=== PATIENT | male | born 1940 | race Caucasian/White ===

== ENCOUNTER → 2019-01-23 | Outpatient (CLI) | payer MEDICARE, BC ==
[~2019-01-23] MED LIST: VISIPAQUE 320 MG/ML, 150ML BOTTLE ONE
[2019-01-23 12:33] LABS: CREATININE 1.02 mg/dL (0.7-1.3)
== END | disposition home or self-care (01) ==
LOC: RAD 11:36
PROVIDERS: ATTEND Internal Medicine Cardiovascular Disease
DX: I70.0 Atherosclerosis of aorta (principal); I48.20 Chronic atrial fibrillation, unspecified
CPT/HCPCS: 36415; 71275; 74174; 82565; Q9967

== ENCOUNTER 2019-02-27 04:22 | Inpatient (IN) | payer MEDICARE, BC ==
[2019-02-26 13:29] LABS: BASOPHILS # (AUTO) 0.02 x10^3/uL (0-0.1); BASOPHILS % (AUTO) 0 % (0-1); EOSINOPHILS # (AUTO) 0.05 x10^3/uL (0-0.4); EOSINOPHILS % (AUTO) 1 % (1-7); LYMPHOCYTES # (AUTO) 1.32 x10^3/uL (1-3.4); LYMPHOCYTES % (AUTO) 22 % (22-44); MD NO; MEAN CORPUSCULAR HEMOGLOBIN 33.6 pg (27.5-34.5); MEAN CORPUSCULAR HGB CONC 33.2 g/dL (33.2-36.2); MEAN PLATELET VOLUME 7.1 fL (7.4-10.4); MONOCYTES # (AUTO) 0.45 x10^3/uL (0.2-0.8); MONOCYTES % (AUTO) 8 % (2-9); NEUTROPHILS # (AUTO) 4.22 x10^3/uL (1.8-6.8); NEUTROPHILS % (AUTO) 70 % (42-75); PLATELET COUNT 179 x10^3/uL (130-400); RED BLOOD COUNT 4.53 x10^6/uL (4.38-5.82); RED CELL DISTRIBUTION WIDTH 14.4 % (9.4-14.8)
[2019-02-26 13:39] LABS: INTERNATIONAL NORMALIZED RATIO 1.17 (0.93-1.1); PROTHROMBIN TIME 12.2 Seconds (9.6-11.5)
[2019-02-26 13:40] LABS: ALBUMIN 3.5 g/dL (3.4-5.0); ANION GAP 6 mmol/L (5-15); CALCIUM 8.8 mg/dL (8.5-10.1); CHLORIDE 108 mmol/L (98-107)
[2019-02-26 13:44] LABS: ALANINE AMINOTRANSFERASE 38 U/L (12-78); ALKALINE PHOSPHATASE 96 U/L (45-117); CREATININE 1.08 mg/dL (0.7-1.3); TOTAL PROTEIN 7.2 g/dL (6.4-8.2)
[2019-02-26 14:31] LABS: MICROSCOPIC AUTO
[~2019-02-27] VITALS: Ht 193 cm; Wt 104.9 kg
[~2019-02-27 04:22] MED LIST changes: +ASCO100T5 PO; +LISI-170 PO; +MULT1TAB60 PO; +SIMV20TA19 PO; +TAMS-11 PO; +UBID100C24 PO; -VISIPAQUE 320 MG/ML, 150ML BOTTLE ONE; +WARF2.5T32 PO
[2019-02-27] MEDS ORDERED: INSULIN LISPRO 100 UNITS/ML, PEN SQ-INSULIN SCH (05:00)
[2019-02-27] MEDS ORDERED: DO NOT GIVE MC SCH (05:00)
[2019-02-27] MEDS ORDERED: CHLORHEXIDINE 15 ML UDC MM SCH (05:00)
[2019-02-27 05:06] VITALS: BP_SYST 158; BP_SYST 161; BP_DIAS 81; BP_DIAS 90
[2019-02-27] MEDS ORDERED: FENTANYL PF 250 MCG/5ML ONE ×4 (07:10)
[2019-02-27] MEDS ORDERED: MIDAZOLAM 10MG/2 ML ONE (07:14)
[2019-02-27] MEDS ORDERED: POTASSIUM CHLORIDE 80 MEQ, SODIUM BICARBONATE 8.4% 10 MEQ, MAGNESIUM SULFATE 0.5 GM, LI... IV PRN (07:30)
[2019-02-27] MEDS ORDERED: VANCOMYCIN IV PRN (07:30)
[2019-02-27] MEDS ORDERED: REGULAR INSULIN 62.5 UNITS in SODIUM CHLORIDE 0.9% 249.375 ML IV PRN ×2 (07:30→08:20)
[2019-02-27] MEDS ORDERED: ALBUMIN HUMAN 5% 500 ML IV PRN (07:30)
[2019-02-27] MEDS ORDERED: PHENYLEPHRINE 10 MG in SODIUM CHLORIDE 0.9% 249 ML IV PRN ×2 (07:30→08:20)
[2019-02-27] MEDS ORDERED: EPINEPHRINE 2 MG in SODIUM CHLORIDE 0.9% 248 ML IV SCH (07:30)
[2019-02-27] MEDS ORDERED: SODIUM CHLORIDE 0.9% IV PRN (07:30)
[2019-02-27] MEDS ORDERED: MANNITOL PMX 20% 500 ML IVPB PRN (07:30)
[2019-02-27] MEDS ORDERED: CEFUROXIME 1.5 GM in SODIUM CHLORIDE 0.9% 50 ML IVPB PRN (07:30)
[2019-02-27] MEDS ORDERED: DEXMEDETOMIDINE 200 MCG in SODIUM CHLORIDE 0.9% 48 ML IV SCH (07:30)
[2019-02-27] MEDS ORDERED: PROPOFOL 10 MG/ML, 20ML ONE (08:18)
[2019-02-27] MEDS ORDERED: VASOPRESSIN 20 UNIT/ML, 1ML ONE (08:18)
[2019-02-27] MEDS ORDERED: ROCURONIUM 10MG/ML,5ML ONE ×2 (08:19)
[2019-02-27] MEDS ORDERED: AMINOCAPROIC ACID 250 MG/ML, 20ML ONE ×2 (08:19)
[2019-02-27] MEDS ORDERED: SODIUM CHLORIDE 0.9% 1,000 ML IV PRN (08:20)
[2019-02-27] MEDS ORDERED: DEXMEDETOMIDINE 200 MCG in SODIUM CHLORIDE 0.9% 48 ML IV PRN (08:20)
[2019-02-27] MEDS ORDERED: VASOPRESSIN 50 UNIT in SODIUM CHLORIDE 0.9% 247.5 ML IV PRN (08:20)
[2019-02-27] MEDS ORDERED: VANCOMYCIN 1,600 MG in SODIUM CHLORIDE 0.9% 250 ML IVPB SCH (08:20)
[2019-02-27] MEDS ORDERED: NITROGLYCERIN/D5W PMX 250 ML IV PRN (08:20)
[2019-02-27] MEDS ORDERED: DOBUTAMINE 250 MG in SODIUM CHLORIDE 0.9% 230 ML IV PRN (08:20)
[2019-02-27] MEDS ORDERED: SODIUM BICARB 8.4%, 50ML SYRINGE IV PRN (08:30)
[2019-02-27] MEDS ORDERED: MIDAZOLAM 1 MG/ML, 5ML IVPush PRN (08:30)
[2019-02-27] MEDS ORDERED: EPINEPHRINE 2 MG in SODIUM CHLORIDE 0.9% 248 ML IV PRN (08:30)
[2019-02-27] MEDS ORDERED: BISACODYL 5 MG EC TABLET PO PRN (08:30)
[2019-02-27] MEDS ORDERED: BISACODYL 10 MG SUPP PR PRN (08:30)
[2019-02-27] MEDS ORDERED: DEXTROSE 50%, 50ML SYRINGE IVPush PRN (08:30)
[2019-02-27] MEDS ORDERED: ACETAMINOPHEN 650 MG SUPP PR PRN (08:30)
[2019-02-27] MEDS ORDERED: ACETAMINOPHEN 325 MG TABLET PO PRN (08:30)
[2019-02-27] MEDS ORDERED: FENTANYL PF 100 MCG/2ML IVPush PRN (08:30)
[2019-02-27] MEDS ORDERED: INSULIN REGULAR 100 UNITS/ML, 3ML VIAL IVPush PRN (08:30)
[2019-02-27] MEDS ORDERED: HYDROcodone/APAP 10/325 MG TABLET PO PRN (08:30)
[2019-02-27] MEDS ORDERED: DEXTROSE 4 GM TAB.CHEW PO PRN (08:30)
[2019-02-27] MEDS ORDERED: morphine SULFATE 10 MG/ML, 1ML IVPush PRN (08:30)
[2019-02-27] MEDS ORDERED: GLUCAGON 1 MG IM PRN (08:30)
[2019-02-27] MEDS ORDERED: PROCHLORPERAZINE 5 MG/ML, 2ML IVPush PRN (08:30)
[2019-02-27] MEDS ORDERED: LACTATED RINGERS 1,000 ML IV PRN (08:30)
[2019-02-27] MEDS ORDERED: MUPIROCIN OINT 2%, 22GM TP SCH (09:00)
[2019-02-27] MEDS: SODIUM CHLORIDE FLUSH 10ML SYR IVF SCH ×2 (09:00→20:20)
[2019-02-27] MEDS ORDERED: SODIUM CHLORIDE FLUSH 10ML SYR IVF SCH (09:00)
[2019-02-27] MEDS: DOCUSATE 100 MG CAPSULE PO SCH ×2 (10:25→20:20)
[2019-02-27] MEDS: MUPIROCIN OINT 2%, 22GM NAS SCH ×2 (10:25→20:20)
[2019-02-27] MEDS ORDERED: PROTAMINE SULFATE 10 MG/ML, 25ML ONE ×2 (10:42)
[2019-02-27] MEDS: INSULIN LISPRO 100 UNITS/ML, PEN SQ-INSULIN SCH ×3 (11:07→20:21)
[2019-02-27] MEDS ORDERED: SODIUM BICARBONATE 1 MEQ/ML, 50ML VIAL ONE (12:29)
[2019-02-27] MEDS ORDERED: methylPREDNISolone SOD SUCC 125 MG/2 ML ONE (12:29)
[2019-02-27] MEDS ORDERED: ALBUMIN HUMAN 25% 50 ML ONE (12:29)
[2019-02-27] MEDS ORDERED: HEPARIN 1,000 UNITS/ML, 30ML ONE (12:29)
[2019-02-27] MEDS ORDERED: LIDOCAINE 2%, 20ML ONE (12:29)
[2019-02-27 12:45] LABS: GLUCOSE BY BLOOD GAS ANALYZER 168 mg/dL (70-110); POTASSIUM BY BLOOD GAS ANALYZR 3.8 mmol/L (3.6-5.5)
[2019-02-27 12:57] LABS: INTERNATIONAL NORMALIZED RATIO 1.47 (0.93-1.1); PROTHROMBIN TIME 15.2 Seconds (9.6-11.5)
[2019-02-27] MEDS: KSCALE TO 4.5 IV SCH ×2 (13:00→18:34)
[2019-02-27] MEDS: MAGNESIUM SULFATE 1 GM in SODIUM CHLORIDE 0.9% 50 ML IVPB SCH (13:48)
[2019-02-27] MEDS ORDERED: POTASSIUM CHLORIDE PMX 100 ML IV ONE (14:00)
[2019-02-27] MEDS: CEFUROXIME 1.5 GM in SODIUM CHLORIDE 0.9% 50 ML IVPB SCH (18:32)
[2019-02-27] MEDS: VANCOMYCIN 1,600 MG in SODIUM CHLORIDE 0.9% 250 ML IVPB SCH (19:02)
[2019-02-27] MEDS: ONDANSETRON 2MG/ML, 2ML IVPush PRN (20:20)
[2019-02-27] MEDS: HYDROcodone/APAP 5/325 TABLET PO PRN (20:21)
[2019-02-27] MEDS: OXYcodone IR 5MG TABLET PO PRN (22:45)
[2019-02-28] MEDS ORDERED: FUROSEMIDE 20 MG/2 ML IV ONE (01:00)
[2019-02-28] MEDS: OXYcodone IR 5MG TABLET PO PRN ×6 (03:35→23:59)
[2019-02-28] MEDS: KSCALE TO 4.5 IV SCH ×2 (06:00)
[2019-02-28 06:07] LABS: ALBUMIN 2.9 g/dL (3.4-5.0); ANION GAP 7 mmol/L (5-15); CALCIUM 8.3 mg/dL (8.5-10.1); CHLORIDE 112 mmol/L (98-107); INTERNATIONAL NORMALIZED RATIO 1.12 (0.93-1.1); PROTHROMBIN TIME 11.7 Seconds (9.6-11.5)
[2019-02-28 06:13] LABS: CREATININE 1.11 mg/dL (0.7-1.3)
[2019-02-28] MEDS: CEFUROXIME 1.5 GM in SODIUM CHLORIDE 0.9% 50 ML IVPB SCH (06:15)
[2019-02-28] MEDS: INSULIN LISPRO 100 UNITS/ML, PEN SQ-INSULIN SCH ×4 (06:20→20:22)
[2019-02-28] MEDS: ONDANSETRON 2MG/ML, 2ML IVPush PRN (07:36)
[2019-02-28] MEDS: VANCOMYCIN 1,600 MG in SODIUM CHLORIDE 0.9% 250 ML IVPB SCH (07:36)
[2019-02-28] MEDS ORDERED: SODIUM CHLORIDE 0.9%, 500ML IVBOLUS ONE (08:00)
[2019-02-28 08:16] LABS: MEAN CORPUSCULAR HGB CONC 32.6 g/dL (33.2-36.2); MEAN CORPUSCULAR VOLUME 104.3 fL (81-97); MEAN PLATELET VOLUME 8.1 fL (7.4-10.4); PLATELET COUNT 116 x10^3/uL (130-400); RED BLOOD COUNT 3.95 x10^6/uL (4.38-5.82); RED CELL DISTRIBUTION WIDTH 14.4 % (9.4-14.8)
[2019-02-28 08:33] LABS: BASOPHILS % (AUTO) 0 % (0-1); EOSINOPHILS # (AUTO) 0.13 x10^3/uL (0-0.4); EOSINOPHILS % (AUTO) 1 % (1-7); LYMPHOCYTES # (AUTO) 0.62 x10^3/uL (1-3.4); LYMPHOCYTES % (AUTO) 4 % (22-44); MD SCAN; MONOCYTES # (AUTO) 0.71 x10^3/uL (0.2-0.8); MONOCYTES % (AUTO) 5 % (2-9); NEUTROPHILS # (AUTO) 13.16 x10^3/uL (1.8-6.8); NEUTROPHILS % (AUTO) 90 % (42-75)
[2019-02-28] MEDS ORDERED: MAGNESIUM HYDROXIDE 8%, 30ML UDC PO PRN (09:00)
[2019-02-28] MEDS: ASPIRIN 81 MG TABLET EC PO SCH (09:16)
[2019-02-28] MEDS: TAMSULOSIN 0.4 MG CAP.ER.24H PO SCH (09:16)
[2019-02-28] MEDS: DOCUSATE 100 MG CAPSULE PO SCH ×2 (09:16→20:17)
[2019-02-28] MEDS: SODIUM CHLORIDE FLUSH 10ML SYR IVF SCH ×3 (09:17→20:23)
[2019-02-28] MEDS: CHLORHEXIDINE 15 ML UDC MM SCH ×2 (09:17→20:17)
[2019-02-28] MEDS: MUPIROCIN OINT 2%, 22GM NAS SCH ×2 (09:17→20:41)
[2019-02-28] MEDS: HYDROcodone/APAP 5/325 TABLET PO PRN (11:06)
[2019-02-28] MEDS: MAGNESIUM SULFATE 1 GM in SODIUM CHLORIDE 0.9% 50 ML IVPB SCH (12:02)
[2019-02-28] MEDS ORDERED: ALBUMIN HUMAN 5% 500 ML IV ONE (14:00)
[2019-02-28] MEDS ORDERED: WARFARIN 7.5 MG TABLET PO-COUM ONE (18:00)
[2019-02-28 20:00] VITALS: BP 115/62
[2019-02-28] MEDS: SIMVASTATIN 20 MG TABLET PO SCH (20:17)
[2019-03-01] VITALS: BP 126/61
[2019-03-01 04:00] VITALS: BP 117/62
[2019-03-01] MEDS: OXYcodone IR 5MG TABLET PO PRN ×5 (06:55→22:50)
[2019-03-01 08:00] VITALS: BP 136/86
[2019-03-01 08:00] LABS: BASOPHILS % (AUTO) 0 % (0-1); EOSINOPHILS # (AUTO) 0.01 x10^3/uL (0-0.4); EOSINOPHILS % (AUTO) 0 % (1-7); LYMPHOCYTES # (AUTO) 0.78 x10^3/uL (1-3.4); LYMPHOCYTES % (AUTO) 6 % (22-44); MD NO; MEAN CORPUSCULAR HEMOGLOBIN 33.6 pg (27.5-34.5); MEAN PLATELET VOLUME 7.7 fL (7.4-10.4); MONOCYTES % (AUTO) 6 % (2-9); NEUTROPHILS # (AUTO) 11.17 x10^3/uL (1.8-6.8); NEUTROPHILS % (AUTO) 88 % (42-75); PLATELET COUNT 108 x10^3/uL (130-400); RED BLOOD COUNT 3.56 x10^6/uL (4.38-5.82); RED CELL DISTRIBUTION WIDTH 14.8 % (9.4-14.8)
[2019-03-01 08:07] LABS: CALCIUM 8.7 mg/dL (8.5-10.1); CREATININE 1.07 mg/dL (0.7-1.3)
[2019-03-01 08:08] LABS: INTERNATIONAL NORMALIZED RATIO 1.24 (0.93-1.1); PROTHROMBIN TIME 12.9 Seconds (9.6-11.5)
[2019-03-01 08:22] LABS: ANION GAP 5 mmol/L (5-15); CHLORIDE 107 mmol/L (98-107)
[2019-03-01] MEDS: INSULIN LISPRO 100 UNITS/ML, PEN SQ-INSULIN SCH ×4 (08:52→20:25)
[2019-03-01] MEDS: TAMSULOSIN 0.4 MG CAP.ER.24H PO SCH (08:52)
[2019-03-01] MEDS: CHLORHEXIDINE 15 ML UDC MM SCH ×2 (08:52→20:25)
[2019-03-01] MEDS: DOCUSATE 100 MG CAPSULE PO SCH ×2 (08:52→20:24)
[2019-03-01] MEDS: MUPIROCIN OINT 2%, 22GM NAS SCH ×2 (08:53→21:00)
[2019-03-01] MEDS: ASPIRIN 81 MG TABLET EC PO SCH (08:54)
[2019-03-01] MEDS: SODIUM CHLORIDE FLUSH 10ML SYR IVF SCH ×4 (08:55→20:25)
[2019-03-01] MEDS: MAGNESIUM SULFATE 1 GM in SODIUM CHLORIDE 0.9% 50 ML IVPB SCH (12:06)
[2019-03-01 14:20] VITALS: BP 136/86
[2019-03-01] MEDS ORDERED: WARFARIN 7.5 MG TABLET PO-COUM ONE (18:00)
[2019-03-01] MEDS: SIMVASTATIN 20 MG TABLET PO SCH (20:24)
[2019-03-01 22:04] VITALS: BP 126/63
[2019-03-02 00:39] VITALS: BP 144/79
[2019-03-02] MEDS: OXYcodone IR 5MG TABLET PO PRN ×3 (02:09→22:11)
[2019-03-02 05:23] VITALS: BP 148/81
[2019-03-02 05:58] LABS: ANION GAP 6 mmol/L (5-15); BASOPHILS # (AUTO) 0.07 x10^3/uL (0-0.1); BASOPHILS % (AUTO) 1 % (0-1); CALCIUM 8.6 mg/dL (8.5-10.1); CHLORIDE 105 mmol/L (98-107); CREATININE 0.87 mg/dL (0.7-1.3); EOSINOPHILS # (AUTO) 0.17 x10^3/uL (0-0.4); EOSINOPHILS % (AUTO) 2 % (1-7); LYMPHOCYTES # (AUTO) 1.16 x10^3/uL (1-3.4); LYMPHOCYTES % (AUTO) 11 % (22-44); MD NO; MEAN CORPUSCULAR HEMOGLOBIN 34.1 pg (27.5-34.5); MEAN CORPUSCULAR HGB CONC 32.9 g/dL (33.2-36.2); MEAN CORPUSCULAR VOLUME 103.7 fL (81-97); MONOCYTES # (AUTO) 0.79 x10^3/uL (0.2-0.8); MONOCYTES % (AUTO) 8 % (2-9); NEUTROPHILS # (AUTO) 8.16 x10^3/uL (1.8-6.8); NEUTROPHILS % (AUTO) 79 % (42-75); PLATELET COUNT 109 x10^3/uL (130-400); RED BLOOD COUNT 3.48 x10^6/uL (4.38-5.82); RED CELL DISTRIBUTION WIDTH 14.6 % (9.4-14.8)
[2019-03-02 06:35] LABS: INTERNATIONAL NORMALIZED RATIO 1.66 (0.93-1.1); PROTHROMBIN TIME 17.1 Seconds (9.6-11.5)
[2019-03-02] MEDS: INSULIN LISPRO 100 UNITS/ML, PEN SQ-INSULIN SCH (07:00)
[2019-03-02] MEDS: SODIUM CHLORIDE FLUSH 10ML SYR IVF SCH ×4 (09:00→21:33)
[2019-03-02] MEDS: TAMSULOSIN 0.4 MG CAP.ER.24H PO SCH (09:22)
[2019-03-02] MEDS: ASPIRIN 81 MG TABLET EC PO SCH (09:22)
[2019-03-02] MEDS: DOCUSATE 100 MG CAPSULE PO SCH ×2 (09:22→21:33)
[2019-03-02] MEDS: MUPIROCIN OINT 2%, 22GM NAS SCH ×2 (12:19→21:33)
[2019-03-02 14:00] VITALS: BP 156/75
[2019-03-02] MEDS ORDERED: WARFARIN 3 MG TABLET PO-COUM ONE (18:00)
[2019-03-02 20:14] VITALS: BP 134/75
[2019-03-02] MEDS: SIMVASTATIN 20 MG TABLET PO SCH (21:33)
[2019-03-03 00:21] VITALS: BP 145/72
[2019-03-03 04:39] LABS: BASOPHILS # (AUTO) 0.04 x10^3/uL (0-0.1); BASOPHILS % (AUTO) 1 % (0-1); EOSINOPHILS # (AUTO) 0.09 x10^3/uL (0-0.4); EOSINOPHILS % (AUTO) 1 % (1-7); LYMPHOCYTES # (AUTO) 1.05 x10^3/uL (1-3.4); LYMPHOCYTES % (AUTO) 14 % (22-44); MD NO; MEAN CORPUSCULAR HEMOGLOBIN 34.5 pg (27.5-34.5); MEAN CORPUSCULAR VOLUME 104.6 fL (81-97); MONOCYTES # (AUTO) 0.67 x10^3/uL (0.2-0.8); MONOCYTES % (AUTO) 9 % (2-9); NEUTROPHILS # (AUTO) 5.51 x10^3/uL (1.8-6.8); NEUTROPHILS % (AUTO) 75 % (42-75); PLATELET COUNT 113 x10^3/uL (130-400); RED CELL DISTRIBUTION WIDTH 14.1 % (9.4-14.8)
[2019-03-03 04:45] LABS: INTERNATIONAL NORMALIZED RATIO 3.01 (0.93-1.1); PROTHROMBIN TIME 30.3 Seconds (9.6-11.5)
[2019-03-03 04:49] LABS: ANION GAP 5 mmol/L (5-15); CALCIUM 8.2 mg/dL (8.5-10.1); CHLORIDE 105 mmol/L (98-107)
[2019-03-03 06:41] VITALS: BP 151/76
[2019-03-03] MEDS ORDERED: POTASSIUM CHLORIDE 20 MEQ TAB.ER.PRT PO ONE (08:30)
[2019-03-03] MEDS: SODIUM CHLORIDE FLUSH 10ML SYR IVF SCH ×4 (09:00→20:33)
[2019-03-03] MEDS: FUROSEMIDE 40 MG TABLET PO SCH (09:26)
[2019-03-03] MEDS: ASPIRIN 81 MG TABLET EC PO SCH (09:26)
[2019-03-03] MEDS: DOCUSATE 100 MG CAPSULE PO SCH ×2 (09:26→20:32)
[2019-03-03] MEDS: TAMSULOSIN 0.4 MG CAP.ER.24H PO SCH (09:26)
[2019-03-03] MEDS: MUPIROCIN OINT 2%, 22GM NAS SCH ×2 (09:27→20:32)
[2019-03-03] MEDS: HYDROcodone/APAP 5/325 TABLET PO PRN (09:59)
[2019-03-03 12:08] VITALS: BP 117/69
[2019-03-03] MEDS ORDERED: [UNRECOGNIZED DRUG - REMARK] MC PRN (14:30)
[2019-03-03] MEDS: OXYcodone IR 5MG TABLET PO PRN (17:29)
[2019-03-03 19:50] VITALS: BP 144/72
[2019-03-03] MEDS: SIMVASTATIN 20 MG TABLET PO SCH (20:32)
[2019-03-03 23:44] VITALS: BP 145/76
[2019-03-04] MEDS: OXYcodone IR 5MG TABLET PO PRN ×3 (04:41→16:06)
[2019-03-04 06:50] VITALS: BP 155/74
[2019-03-04 07:01] LABS: INTERNATIONAL NORMALIZED RATIO 4.43 (0.93-1.1); PROTHROMBIN TIME 43.9 Seconds (9.6-11.5)
[2019-03-04 07:03] LABS: ANION GAP 6 mmol/L (5-15); CALCIUM 8.6 mg/dL (8.5-10.1); CHLORIDE 104 mmol/L (98-107); CREATININE 0.79 mg/dL (0.7-1.3)
[2019-03-04 07:12] LABS: BASOPHILS # (AUTO) 0.04 x10^3/uL (0-0.1); BASOPHILS % (AUTO) 1 % (0-1); EOSINOPHILS # (AUTO) 0.14 x10^3/uL (0-0.4); EOSINOPHILS % (AUTO) 2 % (1-7); LYMPHOCYTES # (AUTO) 0.75 x10^3/uL (1-3.4); LYMPHOCYTES % (AUTO) 12 % (22-44); MD NO; MEAN CORPUSCULAR HEMOGLOBIN 33.4 pg (27.5-34.5); MEAN CORPUSCULAR HGB CONC 33.1 g/dL (33.2-36.2); MEAN CORPUSCULAR VOLUME 100.9 fL (81-97); MEAN PLATELET VOLUME 7.6 fL (7.4-10.4); MONOCYTES % (AUTO) 9 % (2-9); NEUTROPHILS % (AUTO) 76 % (42-75); PLATELET COUNT 134 x10^3/uL (130-400); RED CELL DISTRIBUTION WIDTH 14.1 % (9.4-14.8)
[2019-03-04] MEDS ORDERED: HOLD COUMADIN MC PRN (08:00)
[2019-03-04] MEDS: SODIUM CHLORIDE FLUSH 10ML SYR IVF SCH ×4 (09:00→20:08)
[2019-03-04] MEDS: DOCUSATE 100 MG CAPSULE PO SCH ×3 (09:13→20:10)
[2019-03-04] MEDS: TAMSULOSIN 0.4 MG CAP.ER.24H PO SCH (09:13)
[2019-03-04] MEDS: FUROSEMIDE 40 MG TABLET PO SCH (09:13)
[2019-03-04] MEDS: ASPIRIN 81 MG TABLET EC PO SCH (09:13)
[2019-03-04 12:45] VITALS: BP 161/84
[2019-03-04] MEDS: SIMVASTATIN 20 MG TABLET PO SCH (20:08)
[2019-03-04 20:37] VITALS: BP 126/79
[2019-03-05 01:10] VITALS: BP 133/69
[2019-03-05] MEDS: OXYcodone IR 5MG TABLET PO PRN ×2 (01:25→10:30)
[2019-03-05 06:24] LABS: INTERNATIONAL NORMALIZED RATIO 4.34 (0.93-1.1); PROTHROMBIN TIME 43.1 Seconds (9.6-11.5)
[2019-03-05 06:27] LABS: ANION GAP 6 mmol/L (5-15); CALCIUM 8.4 mg/dL (8.5-10.1); CHLORIDE 99 mmol/L (98-107); CREATININE 1.04 mg/dL (0.7-1.3)
[2019-03-05] MEDS ORDERED: HOLD COUMADIN MC PRN (08:00)
[2019-03-05 08:47] VITALS: BP 130/70
[2019-03-05] MEDS: TAMSULOSIN 0.4 MG CAP.ER.24H PO SCH (08:48)
[2019-03-05] MEDS: ASPIRIN 81 MG TABLET EC PO SCH (08:48)
[2019-03-05] MEDS: FUROSEMIDE 40 MG TABLET PO SCH (08:48)
[2019-03-05] MEDS: SODIUM CHLORIDE FLUSH 10ML SYR IVF SCH ×4 (08:50→20:57)
[2019-03-05] MEDS: DOCUSATE 100 MG CAPSULE PO SCH ×2 (08:51→20:56)
[2019-03-05] MEDS ORDERED: COLCHICINE 0.6 MG CAPSULE PO ONE (09:30)
[2019-03-05] MEDS: COLCHICINE 0.6 MG CAPSULE PO SCH (12:51)
[2019-03-05 13:06] VITALS: BP 123/71
[2019-03-05 20:00] VITALS: BP 119/72
[2019-03-05] MEDS: SIMVASTATIN 20 MG TABLET PO SCH (20:56)
[2019-03-05] MEDS: HYDROcodone/APAP 5/325 TABLET PO PRN (21:16)
[2019-03-06 00:03] VITALS: BP 105/68
[2019-03-06 05:11] LABS: INTERNATIONAL NORMALIZED RATIO 3.86 (0.93-1.1); PROTHROMBIN TIME 38.5 Seconds (9.6-11.5)
[2019-03-06 05:19] LABS: ANION GAP 6 mmol/L (5-15); CALCIUM 8.4 mg/dL (8.5-10.1); CHLORIDE 100 mmol/L (98-107); CREATININE 1.19 mg/dL (0.7-1.3)
[2019-03-06 06:44] VITALS: BP 154/69
[2019-03-06] MEDS ORDERED: HOLD COUMADIN MC PRN (08:00)
[2019-03-06] MEDS: COLCHICINE 0.6 MG CAPSULE PO SCH (08:13)
[2019-03-06] MEDS: ASPIRIN 81 MG TABLET EC PO SCH (08:13)
[2019-03-06] MEDS: TAMSULOSIN 0.4 MG CAP.ER.24H PO SCH (08:14)
[2019-03-06] MEDS: DOCUSATE 100 MG CAPSULE PO SCH (08:14)
[2019-03-06] MEDS: SODIUM CHLORIDE FLUSH 10ML SYR IVF SCH ×2 (08:15)
[2019-03-06] MEDS: FUROSEMIDE 40 MG TABLET PO SCH (08:18)
[2019-03-06] MEDS: HYDROcodone/APAP 5/325 TABLET PO PRN (08:46)
[2019-03-06] MEDS ORDERED: FUROSEMIDE 20 MG TABLET PO SCH (09:00)
[2019-03-06] MEDS ORDERED: ACET325T26 PO (12:26)
[2019-03-06] MEDS ORDERED: COLC0.6C3 PO (12:26)
[2019-03-06] MEDS ORDERED: ASPI81TA45 PO (12:26)
[2019-03-06] MEDS ORDERED: HYDR-3237 PO (12:26)
[2019-03-06] MEDS ORDERED: FURO20TA3 PO (12:26)
[2019-03-06] MEDS ORDERED: POTA10TA12 PO (12:28)
[2019-03-06 12:33] VITALS: BP 124/55
== END 2019-03-06 15:12 | DRG 219 ==
LOC: 5SO 04:22 → CSU 08:21 → 5SO 03-01 22:42
PROVIDERS: ADMIT Thoracic Surgery (Cardiothoracic Vascular Surgery); ATTEND Thoracic Surgery (Cardiothoracic Vascular Surgery)
PROC: 5A1221Z Performance of Cardiac Output, Continuous (ICD-10-PCS; 2019-02-27)
PROC: B246ZZ4 Ultrasonography of Right and Left Heart, Transesophageal (ICD-10-PCS; 2019-02-27)
PROC: 05HY33Z Insertion of Infusion Device into Upper Vein, Percutaneous Approach (ICD-10-PCS; 2019-02-27)
PROC: 03HY32Z Insertion of Monitoring Device into Upper Artery, Percutaneous Approach (ICD-10-PCS; 2019-02-27)
PROC: 4A133B1 Monitoring of Arterial Pressure, Peripheral, Percutaneous Approach (ICD-10-PCS; 2019-02-27)
PROC: 4A133J1 Monitoring of Arterial Pulse, Peripheral, Percutaneous Approach (ICD-10-PCS; 2019-02-27)
PROC: 02UX0JZ Supplement Thoracic Aorta, Ascending/Arch with Synthetic Substitute, Open Approach (ICD-10-PCS; 2019-02-27)
PROC: 02RF08Z Replacement of Aortic Valve with Zooplastic Tissue, Open Approach (ICD-10-PCS; principal; 2019-02-27 07:30)
DX: I35.2 Nonrheumatic aortic (valve) stenosis with insufficiency (principal); I71.1 Thoracic aortic aneurysm, ruptured; J93.82 Other air leak; I73.9 Peripheral vascular disease, unspecified; I48.91 Unspecified atrial fibrillation; I27.20 Pulmonary hypertension, unspecified; E87.5 Hyperkalemia; I10 Essential (primary) hypertension; E78.5 Hyperlipidemia, unspecified; I25.10 Atherosclerotic heart disease of native coronary artery without angina pectoris; M10.9 Gout, unspecified; R79.1 Abnormal coagulation profile; Z95.0 Presence of cardiac pacemaker; Z85.51 Personal history of malignant neoplasm of bladder; Z86.79 Personal history of other diseases of the circulatory system; Z79.01 Long term (current) use of anticoagulants
CPT/HCPCS: 36415; 36600; 71045; 71046; 80048; 80053; 81001; 82040; 82330; 82800; 82803; 82810; 82947; 82962; 83036; 83735; 84132; 84295; 84550; 85014; 85018; 85025; 85049; 85347; 85610; 85730; 86850; 86900; 86923; 87081; 88304; 88305; 88311; 93005; 93312; 93321; 93325; 94002; 94150; C1768; G0378; J0697; J1644; J2250; J2405; J2704; J2720; J3010; J3370; J3475; J3480; P9045; P9047; C1751; C1760; J1815; J1940; J2270; J2930; J7040; J7050